=== PATIENT | male | born 1945 | race Caucasian/White ===

== ENCOUNTER 2018-10-05 15:20 | Observation (INO) ==
--- NOTE | 2018-10-05 19:49 | DR.H&P ---
H&P - History & Physical for Day of: H&P Date: 10/05/18 - Chief Complaint Chief Complaint: generalized weakness, altered mental status - History of Present Illness History of Present Illness: Patient is a 73 year old male that is being admitted to [facility] secondary to altered mental status and generalized weakness. Reports that he has been falling several times a day over the last couple of months. Does report a history of stroke, dementia, CAD, kidney disease and hypertension. Does complain of dysuria. Reports that his urine has been concentrated with a foul odor. Patient will be admitted for further evaluation. - Past Medical History Past Medical History: Coronary Artery Disease, CVA, Dementia, Diabetes, Renal Disease - Past Surgical History Surgical History: Abdominal Surgery - Family History Family Medical History: denies: Diabetes Mellitus, Cancer, [place], Coronary Artery Disease, Heart Failure, Sudden Cardiac , Hypertension - Social History Does patient currently use any type of tobacco product: No Have you used tobacco products in the last 12 months: No Type of Tobacco Use: None Does any household member use tobacco: No Alcohol Use: None Drug Use: None - Review of Systems Constitutional: See HPI Eyes: See HPI ENT: See HPI Respiratory: See HPI Cardiovascular: See HPI Gastrointestinal: See HPI Genitourinary: See HPI Musculoskeletal: See HPI Skin: See HPI Neurological: See HPI, Weakness - Physical Exam Vital Signs: Temperature 98.2 F Pulse Rate [Left Brachial] 71 Respiratory Rate 22 Blood Pressure [Left Arm] 114/60 O2 Sat by Pulse Oximetry 94 Oriented: Normal, Time, Person, Place Eyes: Normal Ear: Normal Nose: Normal Throat: Normal Respiratory: Clear Throughout Cardiovascular: Normal : Dysuria Auscultation: Bowel Sounds: Normal Palpation: Normal Tenderness: Normal Skin: Normal Musculoskeletal: Instability Psychiatric: Normal Mood Description: Flat Affect: Flat Speech Pattern: Clear - Assessment/Plan (1) Generalized weakness Status: Acute Plan: IV hydration. SS consult for rehab placement at [facility] (2) Altered mental status Status: Acute Plan: CT head. UA and Urine CX - Allergies Allergies/Adverse Reactions: Allergies Allergy/AdvReac Type Severity Reaction Status Date / Time No Known Drug Allergies Allergy Unverified 10/05/18 19:46
[2018-10-05] MEDS ORDERED: STERILE WATER IRRIGATION IR ONE (19:57)
[2018-10-05 20:03] LABS: BASOPHILS # (AUTO) 0.1 X10^3/uL (0.0-0.1); EOSINOPHILS # (AUTO) 0.5 x10^3/uL (0.0-0.2); EOSINOPHILS % (AUTO) 3.7 % (0.9-2.9); HEMATOCRIT 38.3 % (42.0-54.0); HEMOGLOBIN 12.7 g/dL (13.5-18.0); LYMPHOCYTES # (AUTO) 3.5 X10^3/uL (1.3-2.9); MEAN CORPUSCULAR HEMOGLOBIN 30.3 pg (27.0-34.0); MEAN CORPUSCULAR HGB CONC 33.2 g/dL (33.0-35.0); MEAN CORPUSCULAR VOLUME 91.3 fL (80.0-100.0); MEAN PLATELET VOLUME 9.1 fL (7.4-11.0); NEUTROPHILS # (AUTO) 7.3 x10^3/uL (2.2-4.8); NEUTROPHILS % (AUTO) 59.3 % (42.0-75.0); PLATELET COUNT 210 X10^3/uL (150.0-450.0); RED BLOOD COUNT 4.19 X10^6/uL (4.7-6.0); RED CELL DISTRIBUTION WIDTH 14.1 % (11.6-16.5); WHITE BLOOD COUNT 12.4 X10^3/uL (3.6-10.0)
[2018-10-05 20:25] LABS: ALANINE AMINOTRANSFERASE 30 Units/L (12-78); ALBUMIN 3.2 g/dL (3.4-5.0); ALKALINE PHOSPHATASE 82 Units/L (46-116); ASPARTATE AMINO TRANSFERASE 31 Units/L (15-37); BLOOD UREA NITROGEN 29 mg/dL (7-18); CALCIUM 8.9 mg/dL (8.5-10.1); CARBON DIOXIDE 23.7 mmol/L (21-32); CHLORIDE 102 mmol/L (98-107); CKMB % 0.3 % (<4); COR CA(FOR HYPOALB) 9.5 mg/dL (8.5-10.1); COR NA(FOR HYPERGLY) 142 mmol/L (136-145); CREATINE KINASE 591 Units/L (39-308); CREATINE KINASE MB 1.6 ng/mL (0-4.0); CREATININE 1.99 mg/dL (0.70-1.30); SODIUM 138 mmol/L (136-145); TOTAL PROTEIN 7.2 g/dL (6.4-8.2); TROPONIN I < 0.02 ng/mL (0-1.5); eGFR NON BLACK RACES 35 (>60)
[2018-10-05 21:22] VITALS: BMI 29.0
[2018-10-05] MEDS ORDERED: KLOR-CON PO PRN (21:48)
[2018-10-05] MEDS ORDERED: K-DUR TAB 20 MEQ PO PRN (21:48)
[2018-10-05] MEDS ORDERED: K-RIDER 10 MEQ/NS 100 ML 10 MEQ/100 ML BAG IV PRN (21:48)
[2018-10-05] MEDS ORDERED: POTASSIUM CHL 60 MEQ/NS 0.45% 500 ML IV PRN (21:48)
[2018-10-05] MEDS ORDERED: POTASSIUM CHLORIDE LIQ 20 MEQ UDC PO PRN (21:48)
[2018-10-05] MEDS ORDERED: POTASSIUM CHL 40 MEQ/NS 0.45% 500 ML IV PRN (21:48)
[2018-10-05] MEDS ORDERED: MICRO K EXTEN CAP 10 MEQ PO PRN (21:48)
[2018-10-05] MEDS ORDERED: NS 500 ML IV 500 ML ONE (22:21)
[2018-10-05] MEDS: MAGNESIUM SULFATE 1 GRAM/100 mL PREMIX 1 GM/100 ML BAG IV PRN ×2 (22:26→23:02)
[2018-10-05] MEDS: NS 500 ML IV 500 ML IV SCH (22:26)
[2018-10-06] MEDS: MAGNESIUM SULFATE 1 GRAM/100 mL PREMIX 1 GM/100 ML BAG IV PRN ×2 (00:36→01:33)
[2018-10-06 02:00] LABS: CKMB % 0.2 % (<4); CREATINE KINASE 515 Units/L (39-308); CREATINE KINASE MB 1.2 ng/mL (0-4.0); TROPONIN I < 0.02 ng/mL (0-1.5)
[2018-10-06 04:42] LABS: BILIRUBIN,URINE NEGATIVE (NEGATIVE); BLOOD/HEMOGLOBIN,URINE NEGATIVE (NEGATIVE); GLUCOSE, URINE 1+ (NEGATIVE); KETONES,URINE NEGATIVE (NEGATIVE); LEUKOCYTE ESTERASE ,URINE NEGATIVE (NEGATIVE); NITRITES,URINE NEGATIVE (NEGATIVE); PROTEIN,URINE 1+ (NEGATIVE); UROBILINOGEN,URINE NORMAL (NORMAL)
[2018-10-06 04:47] LABS: APPEARANCE,URINE CLEAR (CLEAR); BACTERIA,URINE NEGATIVE /HPF (NEGATIVE); COLOR,URINE YELLOW (YELLOW); RBC,URINE NONE SEEN /HPF (NONE SEEN); SQUAMOUS EPITHELIAL CELL,UR RARE /HPF (NEGATIVE)
[2018-10-06 05:11] LABS: BASOPHILS # (AUTO) 0.1 X10^3/uL (0.0-0.1); BASOPHILS % (AUTO) 0.5 % (0.2-1.0); EOSINOPHILS # (AUTO) 0.5 x10^3/uL (0.0-0.2); EOSINOPHILS % (AUTO) 4.1 % (0.9-2.9); HEMATOCRIT 37.7 % (42.0-54.0); HEMOGLOBIN 12.4 g/dL (13.5-18.0); LYMPHOCYTES # (AUTO) 2.6 X10^3/uL (1.3-2.9); LYMPHOCYTES % (AUTO) 20.6 % (21.0-51.0); MEAN CORPUSCULAR HEMOGLOBIN 30.4 pg (27.0-34.0); MEAN CORPUSCULAR HGB CONC 32.9 g/dL (33.0-35.0); MEAN CORPUSCULAR VOLUME 92.3 fL (80.0-100.0); MEAN PLATELET VOLUME 9.4 fL (7.4-11.0); MONOCYTES % (AUTO) 7.7 % (0.0-13.0); NEUTROPHILS # (AUTO) 8.5 x10^3/uL (2.2-4.8); NEUTROPHILS % (AUTO) 67.1 % (42.0-75.0); PLATELET COUNT 250 X10^3/uL (150.0-450.0); RED BLOOD COUNT 4.08 X10^6/uL (4.7-6.0); RED CELL DISTRIBUTION WIDTH 14.3 % (11.6-16.5); WHITE BLOOD COUNT 12.7 X10^3/uL (3.6-10.0)
[2018-10-06 05:28] LABS: ALBUMIN 3.2 g/dL (3.4-5.0); CARBON DIOXIDE 25.8 mmol/L (21-32); COR CA(FOR HYPOALB) 9.6 mg/dL (8.5-10.1); CREATININE 1.8 mg/dL (0.70-1.30); TOTAL PROTEIN 7.2 g/dL (6.4-8.2)
--- NOTE | 2018-10-06 06:03 | RAD ---
HISTORY: Weakness Study: Chest AP portable Comparison: None Findings: The heart is upper limits normal in size. No congestive heart failure is noted. The aorta is ectatic and calcified. The diego are normal. The lungs are mildly hypo inflated but free of acute infiltrates. There is minimal subsegmental atelectasis in the right lung base. The bony thorax is unremarkable. IMPRESSION: Lungs mildly hypo inflated but free of acute infiltrates Minimal subsegmental atelectasis right lung base Reported By:
--- NOTE | 2018-10-06 06:44 | CT ---
HISTORY: Altered mental status Study: CT brain without contrast Comparison: None Technique: Multiple axial images of the brain were obtained from the skull base to the vertex without administration of IV contrast. Findings: No acute intraparenchymal hemorrhage or mass can be identified. No extra-axial fluid collections are seen. No alteration in the attenuation of the brain parenchyma can be identified to suggest acute or subacute ischemic change. The ventricular system is symmetric and nondilated. There is chronic periventricular white matter disease observed and age-appropriate generalized atrophy. IMPRESSION: 1. No acute intracranial process can be identified. 2. Chronic periventricular white matter disease likely on the basis of small vessel ischemic change. 3. Age-appropriate atrophic changes are seen. Reported By:
[2018-10-06 08:37] LABS: CKMB % 0.3 % (<4); CREATINE KINASE 534 Units/L (39-308); CREATINE KINASE MB 1.4 ng/mL (0-4.0); TROPONIN I < 0.02 ng/mL (0-1.5)
[2018-10-06] MEDS ORDERED: PERCOCET TAB 5/325 MG PO PRN (09:36)
[2018-10-06] MEDS ORDERED: NEURONTIN CAP 300 MG PO PRN (09:36)
[2018-10-06] MEDS ORDERED: VITAMIN D (1.25MG) PO SCH (11:00)
[2018-10-06] MEDS: NS 1000 ML 1,000 ML IV SCH (11:26)
[2018-10-06] MEDS: WELCHOL PO SCH ×2 (11:27→20:44)
[2018-10-06] MEDS: ASPIRIN PO SCH (11:28)
[2018-10-06] MEDS: ROCALTROL PO SCH (11:28)
[2018-10-06] MEDS: CELEXA PO SCH (11:28)
[2018-10-06] MEDS: LIPITOR TAB 40 MG PO SCH (11:28)
[2018-10-06] MEDS: PLAVIX PO SCH (11:29)
[2018-10-06] MEDS: NORVASC TAB 10 MG PO SCH (11:29)
[2018-10-06] MEDS: ROCEPHIN VIAL 1 GRAM IVP SCH (17:12)
--- NOTE | 2018-10-06 18:07 | PCM.PROG ---
Progress Note - Progress Note for Day of Date of Exam: 10/06/18 - Subjective Subjective: 73 WM ADMITTED ON 10/06 WITH INCREASED AMS. PT WAS DEHYDRATED ON ADMISSION WITH ELEVATED BUN, CREAT AND RHABDO. WE STARTED PT ON NS AT 50CC/HR WITH STRICT I & OS. PTSTATES HE HAS HAD ONE STENT IN THE PAST. CE AND EKG ON ADMISSION REVIEWED WITH PT AND FAMILY. WE STARTED HIM ON ROCEPHIN DAILY AND RESP CONSULT. PT IS MORE ALERT AND ORIENTED ON EXAM THIS AM. IMPROVING RENAL FUNCTION BUN 23, CREAT 1.8 - Past Medical Family Social History Past Med/Fam/Surg Hx: No changes since H&P Allergies: Allergies No Known Drug Allergies Allergy (Unverified 10/05/18 19:46) - Review of Systems ROS: No change since H&P - Vital Signs and I&O's Vital Signs: Temperature 98.1 F Pulse Rate [Left Brachial] 70 Respiratory Rate 20 Blood Pressure [Left Arm] 120/66 O2 Sat by Pulse Oximetry 94 Intake and Output: Intake & Output 10/04/18 10/05/18 10/06/18 10/07/18 11:59 11:59 11:59 11:59 Intake Total 1070 / 1070 720 / 720 Output Total 1400 / 1400 Balance -330 / -330 720 / 720 - Physical Exam Oriented: Normal, Time, Person, Place Eyes: Normal Ear: Normal Nose: Normal Throat: Normal Respiratory: Diminished Cardiovascular: Normal : Dysuria Auscultation: Bowel Sounds: Normal Tenderness: Normal Skin: Normal Musculoskeletal: Instability Psychiatric: Normal Mood Description: Flat Affect: Flat Speech Pattern: Clear, Appropriate - Laboratory and Diagnostics Result Diagrams: 10/06/18 04:20 10/06/18 04:20 Labs: 10/06/18 16:26 Sputum - Expectorated Sputum - Final Laboratory WBC 12.7 X10^3/uL (3.6-10.0) H 10/06/18 04:20 RBC 4.08 X10^6/uL (4.7-6.0) L 10/06/18 04:20 Hgb 12.4 g/dL (13.5-18.0) L 10/06/18 04:20 Hct 37.7 % (42.0-54.0) L 10/06/18 04:20 MCV 92.3 fL (80.0-100.0) 10/06/18 04:20 MCH 30.4 pg (27.0-34.0) 10/06/18 04:20 MCHC 32.9 g/dL (33.0-35.0) L 10/06/18 04:20 RDW 14.3 % (11.6-16.5) 10/06/18 04:20 Plt Count 250 X10^3/uL (150.0-450.0) 10/06/18 04:20 MPV 9.4 fL (7.4-11.0) 10/06/18 04:20 Neut % (Auto) 67.1 % (42.0-75.0) 10/06/18 04:20 Lymph % (Auto) 20.6 % (21.0-51.0) L 10/06/18 04:20 [place] % (Auto) 7.7 % (0.0-13.0) 10/06/18 04:20 Eos % (Auto) 4.1 % (0.9-2.9) H 10/06/18 04:20 Baso % (Auto) 0.5 % (0.2-1.0) 10/06/18 04:20 Neut # (Auto) 8.5 x10^3/uL (2.2-4.8) H 10/06/18 04:20 Lymph # (Auto) 2.6 X10^3/uL (1.3-2.9) 10/06/18 04:20 [place] # (Auto) 1.0 x10^3/uL (0.3-0.8) H 10/06/18 04:20 Eos # (Auto) 0.5 x10^3/uL (0.0-0.2) H 10/06/18 04:20 Baso # (Auto) 0.1 X10^3/uL (0.0-0.1) 10/06/18 04:20 Absolute Nucleated RBC 0.0 /100WBC 10/06/18 04:20 Sodium 136 mmol/L (136-145) 10/06/18 04:20 Corrected Sodium 138 mmol/L (136-145) 10/06/18 04:20 Potassium 3.5 mmol/L (3.5-5.1) 10/06/18 04:20 Chloride 101 mmol/L (98-107) 10/06/18 04:20 Carbon Dioxide 25.8 mmol/L (21-32) 10/06/18 04:20 BUN 23 mg/dL (7-18) H 10/06/18 04:20 Creatinine 1.80 mg/dL (0.70-1.30) H 10/06/18 04:20 Est GFR (MDRD) Af Amer 48 (>60) L 10/06/18 04:20 Est GFR (MDRD) Non-Af 40 (>60) L 10/06/18 04:20 Glucose 199 mg/dL (65-99) H 10/06/18 04:20 Calcium 9.0 mg/dL (8.5-10.1) 10/06/18 04:20 Corrected Calcium 9.6 mg/dL (8.5-10.1) 10/06/18 04:20 Magnesium 2.5 mg/dL (1.7-2.9) 10/06/18 04:20 Total Bilirubin 0.40 mg/dL (0.2-1.0) 10/06/18 04:20 AST 28 Units/L (15-37) 10/06/18 04:20 ALT 28 Units/L (12-78) 10/06/18 04:20 Alkaline Phosphatase 79 Units/L (46-116) 10/06/18 04:20 Creatine Kinase 534 Units/L (39-308) H 10/06/18 07:51 CK-MB (CK-2) 1.4 ng/mL (0-4.0) 10/06/18 07:51 CK/CKMB % Calc 0.3 % (<4) 10/06/18 07:51 Troponin I < 0.02 ng/mL (0-1.5) 10/06/18 07:51 Total Protein 7.2 g/dL (6.4-8.2) 10/06/18 04:20 Albumin 3.2 g/dL (3.4-5.0) L 10/06/18 04:20 Globulin 4.0 g/dL (2.5-4.5) 10/06/18 04:20 Albumin/Globulin Ratio 0.8 Ratio (1.1-2.1) L 10/06/18 04:20 Specimen Type Catherized urine 10/05/18 04:16 Urine Color Yellow (YELLOW) 10/05/18 04:16 Urine Appearance Clear (CLEAR) 10/05/18 04:16 Urine pH 5.0 (5.0 - 8.0) 10/05/18 04:16 Ur Specific [place] 1.015 (1.000-1.030) 10/05/18 04:16 Urine Protein 1+ (NEGATIVE) 10/05/18 04:16 Urine Glucose (UA) 1+ (NEGATIVE) 10/05/18 04:16 Urine Ketones Negative (NEGATIVE) 10/05/18 04:16 Urine Occult Blood Negative (NEGATIVE) 10/05/18 04:16 Urine Nitrite Negative (NEGATIVE) 10/05/18 04:16 Urine Bilirubin Negative (NEGATIVE) 10/05/18 04:16 Urine Urobilinogen Normal (NORMAL) 10/05/18 04:16 Ur Leukocyte Esterase Negative (NEGATIVE) 10/05/18 04:16 Urine RBC None seen /HPF (NONE SEEN) 10/05/18 04:16 Urine WBC None seen /HPF (NONE SEEN) 10/05/18 04:16 Ur Squamous Epith Cells Rare /HPF (NEGATIVE) 10/05/18 04:16 Urine Bacteria Negative /HPF (NEGATIVE) 10/05/18 04:16 Ur Culture Indicated? Yes/culture set up 10/05/18 04:16 - Plan (1) Rhabdomyolysis Status: Acute Plan: CONTINUE GENTLE IV HYDRATION, STRICT I &O. AM CXR, RESP CONSULT. BP CONTROL, FLP. TELEMETRY, IV ROCEPHIN DAILY. UC/BC ON ADMISSION (2) Dehydration Status: Acute (3) UTI (urinary tract infection) Status: Acute (4) CAD (coronary artery disease) Status: Acute (5) Generalized weakness Status: Acute Plan: IV hydration. consult for rehab placement at [facility] (6) Altered mental status Status: Acute Plan: CT head. UA and Urine CX
[2018-10-06] MEDS: PriLOSEC PO SCH (20:44)
[2018-10-06] MEDS: LOPRESSOR TAB 25 MG PO SCH (20:44)
[2018-10-06] MEDS: LOVENOX INJ 40 MG SYR SC SCH (20:49)
[2018-10-07] MEDS: NS 500 ML IV 500 ML IV SCH (03:16)
[2018-10-07] MEDS: NS 1000 ML 1,000 ML IV SCH ×2 (03:16→14:00)
[2018-10-07 05:17] LABS: BASOPHILS # (AUTO) 0.1 X10^3/uL (0.0-0.1); BASOPHILS % (AUTO) 0.7 % (0.2-1.0); EOSINOPHILS # (AUTO) 0.5 x10^3/uL (0.0-0.2); EOSINOPHILS % (AUTO) 4.1 % (0.9-2.9); HEMATOCRIT 37.6 % (42.0-54.0); HEMOGLOBIN 12.3 g/dL (13.5-18.0); LYMPHOCYTES # (AUTO) 2.4 X10^3/uL (1.3-2.9); MEAN CORPUSCULAR HEMOGLOBIN 29.9 pg (27.0-34.0); MEAN CORPUSCULAR HGB CONC 32.6 g/dL (33.0-35.0); MEAN CORPUSCULAR VOLUME 91.8 fL (80.0-100.0); MEAN PLATELET VOLUME 9.3 fL (7.4-11.0); MONOCYTES % (AUTO) 8.3 % (0.0-13.0); NEUTROPHILS # (AUTO) 8.2 x10^3/uL (2.2-4.8); NEUTROPHILS % (AUTO) 66.9 % (42.0-75.0); PLATELET COUNT 263 X10^3/uL (150.0-450.0); RED CELL DISTRIBUTION WIDTH 13.5 % (11.6-16.5); WHITE BLOOD COUNT 12.2 X10^3/uL (3.6-10.0)
[2018-10-07 05:30] LABS: ALBUMIN 3.1 g/dL (3.4-5.0); CARBON DIOXIDE 23.7 mmol/L (21-32); COR CA(FOR HYPOALB) 9.7 mg/dL (8.5-10.1); CREATININE 1.51 mg/dL (0.70-1.30); TOTAL PROTEIN 7.2 g/dL (6.4-8.2)
--- NOTE | 2018-10-07 06:54 | RAD ---
HISTORY: Shortness of breath Study: Chest AP portable Comparison: 10/05/2018 Findings: The heart is within normal limits in size. The diego are normal. The aorta is calcified and mildly ectatic. The lungs remain mildly hypo inflated but free of acute infiltrates. No pleural effusions are identified. The bony thorax is unremarkable. IMPRESSION: Lungs mildly hypo inflated but clear Reported By:
[2018-10-07] MEDS: CELEXA PO SCH (09:45)
[2018-10-07] MEDS: WELCHOL PO SCH ×2 (09:45→21:02)
[2018-10-07] MEDS: ASPIRIN PO SCH (09:45)
[2018-10-07] MEDS: PriLOSEC PO SCH ×2 (09:46→21:02)
[2018-10-07] MEDS: LOPRESSOR TAB 25 MG PO SCH ×2 (09:46→21:02)
[2018-10-07] MEDS: PLAVIX PO SCH (09:46)
[2018-10-07] MEDS: LIPITOR TAB 40 MG PO SCH (09:46)
[2018-10-07] MEDS: ALDACTONE TAB 25 MG PO SCH (09:46)
[2018-10-07] MEDS: NORVASC TAB 10 MG PO SCH (09:46)
[2018-10-07] MEDS: ROCEPHIN VIAL 1 GRAM IVP SCH (09:47)
[2018-10-07] MEDS: LOVENOX INJ 40 MG SYR SC SCH (09:54)
[2018-10-07] MEDS: DUONEB 0.5 MG/3 MG NEB SCH ×3 (12:04→20:44)
[2018-10-07] MEDS: SOLIFENACIN 5 MG PO SCH (12:07)
[2018-10-07] MEDS: TobraDEX OPHTH OINT EACHEYE SCH ×2 (12:07→21:03)
--- NOTE | 2018-10-07 18:04 | PCM.PROG ---
Progress Note - Progress Note for Day of Date of Exam: 10/07/18 - Subjective Subjective: 73 WM ADMITTED ON 10/06 WITH INCREASED AMS. PT WAS DEHYDRATED ON ADMISSION WITH ELEVATED BUN, CREAT AND RHABDO. WE STARTED PT ON NS AT 50CC/HR WITH STRICT I & OS. PTSTATES HE HAS HAD ONE STENT IN THE PAST. CE AND EKG ON ADMISSION REVIEWED WITH PT AND FAMILY. WE STARTED HIM ON ROCEPHIN DAILY AND RESP CONSULT. PT IS MORE ALERT AND ORIENTED ON EXAM THIS AM, SITTING ON COUCH IN ROOM WITH FAMILY. PT CO CONSTIPATION. IMPROVING RENAL FUNCTION BUN 15, CREAT 1.5. FAMILY ASKING FOR REHAB PLACEMENT - Past Medical Family Social History Past Med/Fam/Surg Hx: No changes since H&P Allergies: Allergies No Known Drug Allergies Allergy (Unverified 10/05/18 19:46) - Review of Systems ROS: No change since H&P - Vital Signs and I&O's Vital Signs: Temperature 98.2 F Pulse Rate [Left Brachial] 67 Pulse Rate 66 Respiratory Rate 20 Blood Pressure [Left Arm] 110/62 O2 Sat by Pulse Oximetry 97 Intake and Output: Intake & Output 10/05/18 10/06/18 10/07/18 10/08/18 11:59 11:59 11:59 11:59 Intake Total 1070 / 1070 1840 / 1840 480 / 480 Output Total 1400 / 1400 Balance -330 / -330 1840 / 1840 480 / 480 - Physical Exam Oriented: Normal, Time, Person, Place Eyes: Normal Ear: Normal Nose: Normal Throat: Normal Respiratory: Diminished Cardiovascular: Normal : Dysuria Auscultation: Bowel Sounds: Normal Tenderness: Normal Skin: Normal Musculoskeletal: Instability Psychiatric: Normal Mood Description: Flat Affect: Flat Speech Pattern: Clear, Appropriate - Laboratory and Diagnostics Result Diagrams: 10/07/18 04:09 10/07/18 13:14 Labs: 10/06/18 16:26 Sputum - Expectorated Sputum Sputum Culture - Preliminary 10/06/18 16:26 Sputum - Expectorated Sputum - Final 10/05/18 04:16 Urine,Clean Catch Urine Culture - Preliminary Laboratory WBC 12.2 X10^3/uL (3.6-10.0) H 10/07/18 04:09 RBC 4.10 X10^6/uL (4.7-6.0) L 10/07/18 04:09 Hgb 12.3 g/dL (13.5-18.0) L 10/07/18 04:09 Hct 37.6 % (42.0-54.0) L 10/07/18 04:09 MCV 91.8 fL (80.0-100.0) 10/07/18 04:09 MCH 29.9 pg (27.0-34.0) 10/07/18 04:09 MCHC 32.6 g/dL (33.0-35.0) L 10/07/18 04:09 RDW 13.5 % (11.6-16.5) 10/07/18 04:09 Plt Count 263 X10^3/uL (150.0-450.0) 10/07/18 04:09 MPV 9.3 fL (7.4-11.0) 10/07/18 04:09 Neut % (Auto) 66.9 % (42.0-75.0) 10/07/18 04:09 Lymph % (Auto) 20.0 % (21.0-51.0) L 10/07/18 04:09 [place] % (Auto) 8.3 % (0.0-13.0) 10/07/18 04:09 Eos % (Auto) 4.1 % (0.9-2.9) H 10/07/18 04:09 Baso % (Auto) 0.7 % (0.2-1.0) 10/07/18 04:09 Neut # (Auto) 8.2 x10^3/uL (2.2-4.8) H 10/07/18 04:09 Lymph # (Auto) 2.4 X10^3/uL (1.3-2.9) 10/07/18 04:09 [place] # (Auto) 1.0 x10^3/uL (0.3-0.8) H 10/07/18 04:09 Eos # (Auto) 0.5 x10^3/uL (0.0-0.2) H 10/07/18 04:09 Baso # (Auto) 0.1 X10^3/uL (0.0-0.1) 10/07/18 04:09 Absolute Nucleated RBC 0.1 /100WBC 10/07/18 04:09 Sodium 138 mmol/L (136-145) 10/07/18 04:09 Corrected Sodium 140 mmol/L (136-145) 10/07/18 04:09 Potassium 3.7 mmol/L (3.5-5.1) 10/07/18 13:14 Chloride 103 mmol/L (98-107) 10/07/18 04:09 Carbon Dioxide 23.7 mmol/L (21-32) 10/07/18 04:09 BUN 15 mg/dL (7-18) 10/07/18 04:09 Creatinine 1.51 mg/dL (0.70-1.30) H 10/07/18 04:09 Est GFR (MDRD) Af Amer 59 (>60) 10/07/18 04:09 Est GFR (MDRD) Non-Af 49 (>60) L 10/07/18 04:09 Glucose 167 mg/dL (65-99) H 10/07/18 04:09 Calcium 9.0 mg/dL (8.5-10.1) 10/07/18 04:09 Corrected Calcium 9.7 mg/dL (8.5-10.1) 10/07/18 04:09 Magnesium 2.5 mg/dL (1.7-2.9) 10/06/18 04:20 Total Bilirubin 0.50 mg/dL (0.2-1.0) 10/07/18 04:09 AST 20 Units/L (15-37) 10/07/18 04:09 ALT 23 Units/L (12-78) 10/07/18 04:09 Alkaline Phosphatase 80 Units/L (46-116) 10/07/18 04:09 Creatine Kinase 388 Units/L (39-308) H 10/07/18 04:09 CK-MB (CK-2) 1.4 ng/mL (0-4.0) 10/06/18 07:51 CK/CKMB % Calc 0.3 % (<4) 10/06/18 07:51 Troponin I < 0.02 ng/mL (0-1.5) 10/06/18 07:51 Total Protein 7.2 g/dL (6.4-8.2) 10/07/18 04:09 Albumin 3.1 g/dL (3.4-5.0) L 10/07/18 04:09 Globulin 4.1 g/dL (2.5-4.5) 10/07/18 04:09 Albumin/Globulin Ratio 0.8 Ratio (1.1-2.1) L 10/07/18 04:09 Specimen Type Catherized urine 10/05/18 04:16 Urine Color Yellow (YELLOW) 10/05/18 04:16 Urine Appearance Clear (CLEAR) 10/05/18 04:16 Urine pH 5.0 (5.0 - 8.0) 10/05/18 04:16 Ur Specific [place] 1.015 (1.000-1.030) 10/05/18 04:16 Urine Protein 1+ (NEGATIVE) 10/05/18 04:16 Urine Glucose (UA) 1+ (NEGATIVE) 10/05/18 04:16 Urine Ketones Negative (NEGATIVE) 10/05/18 04:16 Urine Occult Blood Negative (NEGATIVE) 10/05/18 04:16 Urine Nitrite Negative (NEGATIVE) 10/05/18 04:16 Urine Bilirubin Negative (NEGATIVE) 10/05/18 04:16 Urine Urobilinogen Normal (NORMAL) 10/05/18 04:16 Ur Leukocyte Esterase Negative (NEGATIVE) 10/05/18 04:16 Urine RBC None seen /HPF (NONE SEEN) 10/05/18 04:16 Urine WBC None seen /HPF (NONE SEEN) 10/05/18 04:16 Ur Squamous Epith Cells Rare /HPF (NEGATIVE) 10/05/18 04:16 Urine Bacteria Negative /HPF (NEGATIVE) 10/05/18 04:16 Ur Culture Indicated? Yes/culture set up 10/05/18 04:16 - Plan (1) Rhabdomyolysis Status: Acute Plan: CONTINUE GENTLE IV HYDRATION, STRICT I &O. AM CXR, RESP CONSULT. BP CONTROL, FLP. TELEMETRY, IV ROCEPHIN DAILY. UC/BC ON ADMISSION (2) Dehydration Status: Acute (3) UTI (urinary tract infection) Status: Acute (4) CAD (coronary artery disease) Status: Acute (5) Generalized weakness Status: Acute Plan: IV hydration. consult for rehab placement at [facility] (6) Altered mental status Status: Acute Plan: CT head. UA and Urine CX
[2018-10-07] MEDS ORDERED: HumuLIN R SUBCUT PRN (20:16)
[2018-10-08] MEDS: NS 1000 ML 1,000 ML IV SCH (05:20)
[2018-10-08 05:26] LABS: BASOPHILS # (AUTO) 0.1 X10^3/uL (0.0-0.1); BASOPHILS % (AUTO) 0.7 % (0.2-1.0); EOSINOPHILS # (AUTO) 0.3 x10^3/uL (0.0-0.2); EOSINOPHILS % (AUTO) 2.9 % (0.9-2.9); HEMATOCRIT 38.7 % (42.0-54.0); HEMOGLOBIN 12.8 g/dL (13.5-18.0); LYMPHOCYTES # (AUTO) 2.6 X10^3/uL (1.3-2.9); LYMPHOCYTES % (AUTO) 23.4 % (21.0-51.0); MEAN CORPUSCULAR HEMOGLOBIN 30.7 pg (27.0-34.0); MEAN CORPUSCULAR HGB CONC 33.2 g/dL (33.0-35.0); MEAN CORPUSCULAR VOLUME 92.4 fL (80.0-100.0); MEAN PLATELET VOLUME 8.9 fL (7.4-11.0); MONOCYTES # (AUTO) 1.1 x10^3/uL (0.3-0.8); MONOCYTES % (AUTO) 9.9 % (0.0-13.0); NEUTROPHILS % (AUTO) 63.1 % (42.0-75.0); PLATELET COUNT 292 X10^3/uL (150.0-450.0); RED BLOOD COUNT 4.18 X10^6/uL (4.7-6.0); RED CELL DISTRIBUTION WIDTH 13.9 % (11.6-16.5); WHITE BLOOD COUNT 11.1 X10^3/uL (3.6-10.0)
[2018-10-08 05:53] LABS: ALBUMIN 3.2 g/dL (3.4-5.0); CARBON DIOXIDE 23.4 mmol/L (21-32); COR CA(FOR HYPOALB) 9.6 mg/dL (8.5-10.1); CREATININE 1.58 mg/dL (0.70-1.30); TOTAL PROTEIN 7.7 g/dL (6.4-8.2)
[2018-10-08] MEDS: DUONEB 0.5 MG/3 MG NEB SCH ×2 (09:32→12:05)
[2018-10-08] MEDS: LOVENOX INJ 40 MG SYR SC SCH (09:34)
[2018-10-08] MEDS: ROCEPHIN VIAL 1 GRAM IVP SCH (09:35)
[2018-10-08] MEDS: WELCHOL PO SCH (09:35)
[2018-10-08] MEDS: LIPITOR TAB 40 MG PO SCH (09:36)
[2018-10-08] MEDS: PLAVIX PO SCH (09:36)
[2018-10-08] MEDS: PriLOSEC PO SCH (09:36)
[2018-10-08] MEDS: NORVASC TAB 10 MG PO SCH (09:36)
[2018-10-08] MEDS: ALDACTONE TAB 25 MG PO SCH (09:36)
[2018-10-08] MEDS: LOPRESSOR TAB 25 MG PO SCH (09:36)
[2018-10-08] MEDS: CELEXA PO SCH (09:36)
[2018-10-08] MEDS: TobraDEX OPHTH OINT EACHEYE SCH (09:36)
[2018-10-08] MEDS: ASPIRIN PO SCH (09:37)
[2018-10-08] MEDS: SOLIFENACIN 5 MG PO SCH (09:49)
[2018-10-08] MEDS: ROCALTROL PO SCH (10:32)
[2018-10-08 13:01] VITALS: BP 113/60
[2018-10-08] MEDS ORDERED: SNACK - Diabetic Appropriate PO SCH (20:00)
== END 2018-10-08 13:30 | disposition home or self-care (01) ==
LOC: MED/SURG
PROVIDERS: ADMIT Internal Medicine; ATTEND Internal Medicine
DX: R26.89 Other abnormalities of gait and mobility; I10 Essential (primary) hypertension; N39.0 Urinary tract infection, site not specified; R41.82 Altered mental status, unspecified; M62.82 Rhabdomyolysis; I25.10 Atherosclerotic heart disease of native coronary artery without angina pectoris; R94.4 Abnormal results of kidney function studies; E86.0 Dehydration; K59.09 Other constipation
CPT/HCPCS: 36415; 70450; 71010; 71045; 80053; 81001; 82550; 82553; 83735; 84132; 84484; 85025; 87070; 87077; 87086; 87185; 87186; 87205; 94640; 94760; 96367; 96372; 96374; 97116; 97162; 97166; 97535; A4216; A4217; A4222; G0378; J0696; J1650; J3475; J7030; J7040; J7620